=== PATIENT | male | born 1985 | race African-American/Black ===

== ENCOUNTER 2021-02-19 08:37 | Emergency (ER) | payer SELFPAY | END 2021-02-19 08:55 | LOC: NAV ERS 08:37 | DX: T65.91XA Toxic effect of unspecified substance, accidental (unintentional), initial encounter (principal); F19.921 Other psychoactive substance use, unspecified with intoxication with delirium; I10 Essential (primary) hypertension; F17.210 Nicotine dependence, cigarettes, uncomplicated | CPT/HCPCS: 99283 ==

== ENCOUNTER 2021-03-09 01:50 | Emergency (ER) | payer SELFPAY ==
[2021-03-09] MEDS ORDERED: Sodium Chloride 0.9% 1,000 ML ONE ×2 (02:57→03:51)
[2021-03-09 03:06] LABS: Bilirubin Small (Negative); Blood, Urine Negative (Negative); Clarity Clear (Clear); Glucose, Urine (Dipstick) Negative (Negative); Ketone, Urine 15 mg/dL (Negative); Leukocyte Negative (Negative); Nitrite Negative (Negative); Protein, Urine (Dipstick) 100 mg/dL (Neg-Trace)
[2021-03-09 03:08] LABS: Specific Gravity, Urine 1.031 (1.002-1.036)
[2021-03-09 03:10] LABS: Hemoglobin 14.3 g/dL (14.0-18.0); Mean Corpuscular HGB CONC 30.8 g/dL (32.0-36.0); Mean Corpuscular Hemoglobin 28.3 pg (27.0-31.0); Mean Corpuscular Volume 91.7 fL (78.0-98.0); Platelet Count 368 thou/uL (130-400); Red Blood Cell (RBC) Count 5.06 mill/uL (4.70-6.10); White Blood Cell (WBC) Count 8.6 thou/uL (4.8-10.8)
[2021-03-09 03:12] LABS: RBC/HPF 0-3 HPF (0-3)
[2021-03-09 03:13] LABS: Bacteria/HPF Rare-Few HPF (None Seen); Sperm/HPF 1+ HPF (None Seen); Squamous Epithelial None Seen HPF (0-3); WBC/HPF 0-3 HPF (0-3)
[2021-03-09 03:14] LABS: THC/Cannabinoid Screen Detected (NotDetected)
[2021-03-09 03:15] LABS: Amphetamine Detected (NotDetected); Barbiturates Screen Not Detected (NotDetected); Benzodiazepine Screen Not Detected (NotDetected); Cocaine Metabolite Screen Detected (NotDetected); Medtox Control Line Valid? VALID (VALID); Methadone Not Detected (NotDetected); Methamphetamine Detected (NotDetected); Opiate Screen Not Detected (NotDetected); Oxycodone Screen Not Detected (NotDetected); Phencyclidine (PCP) Not Detected (NotDetected); Tricyclic Screen Not Detected (NotDetected)
[2021-03-09 03:18] LABS: Acetaminophen Less than 6.0 mcg/mL (10.0-30.0); Alcohol Less than 10 mg/dL (Less than 10); Salicylate Less than 8.0 mg/dL (15.0-30.0)
[2021-03-09 03:20] LABS: ALT (SGPT) 38 U/L (8-55); AST (SGOT) 22 U/L (5-34); Albumin 4.8 g/dL (3.5-5.0); Alkaline Phosphatase 65 U/L (40-110); Anion Gap 17 mmol/L (10-20); BUN (Urea Nitrogen) 19 mg/dL (8.9-20.6); Bilirubin, Total 0.6 mg/dL (0.2-1.2); Calc. Creatinine Clearance 0 mL/min (70-130); Calcium 9.4 mg/dL (7.8-10.44); Carbon Dioxide 23 mmol/L (22-29); Chloride 102 mmol/L (98-107); Globulin 4.1 g/dL (2.4-3.5); Glucose 132 mg/dL (70-105); Potassium 3.3 mmol/L (3.5-5.1); Protein, Total 8.9 g/dL (6.0-8.3); Sodium 139 mmol/L (136-145)
[2021-03-09 03:26] LABS: Band 8 % (5-11); Lymphocytes 17 % (21-51); MDiff Complete? YES; Monocytes 4 % (0-10); Neutrophil 71 % (42-75); Platelet Morphology Comment Appears Adequate; RBC Morphology Normal
[2021-03-09] MEDS ORDERED: Potassium Chloride 20 MEQ TAB ONE (03:51)
[2021-03-09] MEDS ORDERED: Ziprasidone 20 MG VIAL ONE (11:33)
[2021-03-09] MEDS ORDERED: diphenhydrAMINE 50 MG/ML VIAL ONE (11:33)
[2021-03-09] MEDS ORDERED: Lorazepam 2 MG/ML VIAL ONE (11:33)
[2021-03-09] MEDS ORDERED: Sterile Water 10 ML ONE (11:33)
== END 2021-03-09 12:24 | disposition short-term general hospital (02) ==
LOC: NAV ERS 01:50
DX: F22 Delusional disorders (principal); I10 Essential (primary) hypertension; F17.210 Nicotine dependence, cigarettes, uncomplicated
CPT/HCPCS: 36416; 80053; 80306; 80307; 81003; 81015; 82550; 84443; 84484; 85025; 93005; 94760; 96372; J1200; J2060; J3486; J7050